=== PATIENT | female | born 1980 | race Caucasian/White ===

== ENCOUNTER 2025-04-01 13:00 | Outpatient (CLI) | payer MEDICARE, SELFPAY ==
[2025-04-02 16:43] LABS: Glucose Urine UA Negative (Normal); Nitrate Urine Negative (Negative); Specific Gravity, Urine 1.020 (1.005-1.030)
[2025-04-02 16:51] LABS: Add Urine Microscopic? YES
[2025-04-02 18:04] LABS: UA Slide Review UA Slide Review Perf
== END 2025-04-01 13:01 | disposition home or self-care (01) ==
LOC: LAB 04-02 16:19
PROVIDERS: PCP Family Medicine; Visit Provider Family Medicine
DX: R82.90 Unspecified abnormal findings in urine (principal)
CPT/HCPCS: 81001; 87086